=== PATIENT | male | born 1940 | race Caucasian/White ===

== ENCOUNTER 2019-07-31 10:57 | Emergency (ER) | payer MEDICAID ==
[~2019-07-31] VITALS: Ht 182.9 cm; Wt 78.0 kg
[2019-07-31 11:13] VITALS: Ht 182.9 cm; Wt 78.0 kg
[2019-07-31 12:06] VITALS: BP 126/84
== END 2019-07-31 12:07 | disposition home or self-care (01) ==
LOC: ED 10:57
DX: B02.9 Zoster without complications (principal); R21 Rash and other nonspecific skin eruption